=== PATIENT | male | born 1970 | race Caucasian/White ===

== ENCOUNTER 2018-09-03 15:40 | Emergency (ER) | payer MEDICAID ==
[2018-09-03 18:26] LABS: ADD MAN DIFF? NO
[2018-09-03 18:29] LABS: BASOPHILS % 0.6 % (0.0-2.0); EOSINOPHILS # 0.3 10^3/ul (0.0-0.5); EOSINOPHILS % 4.3 % (0.0-7.0); HEMATOCRIT 41.4 % (42.0-52.0); HEMOGLOBIN 14.4 g/dl (14.0-18.0); LYMPHOCYTES # 2.3 10^3/ul (0.8-2.9); LYMPHOCYTES % 35.5 % (15.0-51.0); MEAN CORPUSCULAR HEMOGLOBIN 31.2 pg (29.0-33.0); MEAN CORPUSCULAR HGB CONC 34.8 g/dl (32.0-37.0); MEAN CORPUSCULAR VOLUME 89.6 fl (82.0-101.0); MEAN PLATELET VOLUME 10.6 fl (7.4-10.4); MONOCYTE # 0.5 10^3/ul (0.3-0.9); MONOCYTES % 7.6 % (0.0-11.0); NEUTROPHIL # 3.4 10^3/ul (1.6-7.5); NEUTROPHILS % 51.7 % (39.0-77.0); PLATELET COUNT 241 10^3/UL (140-415); RED BLOOD COUNT 4.62 10^6/ul (4.70-6.10); RED CELL DISTRIBUTION WIDTH 11.9 % (11.5-14.5)
[2018-09-03 18:29] LABS: WHITE BLOOD COUNT 6.5 10^3/ul (4.8-10.8)
[2018-09-03] MEDS: ONDANSETRON 4 MG INJ IV (18:34)
[2018-09-03] MEDS: SOD CHLORIDE 0.9% 1,000 ML IV (18:34)
[2018-09-03] MEDS: morphine 4 MG/ML VIAL IV (18:34)
[2018-09-03 18:49] LABS: INR 0.93; PROTIME 12.6 Sec (11.9-14.9)
[2018-09-03 18:50] LABS: BLOOD UREA NITROGEN 61 mg/dl (7-20); CALCIUM 8.7 mg/dl (8.4-10.2); CHLORIDE 100 mmol/L (97-110); CREATININE 2.19 mg/dl (0.61-1.24); Estimated GFR 32 mL/min (>60); GLUCOSE 323 mg/dl (70-220); HDL CHOLESTEROL 25 mg/dl (28-71); PARTIAL THROMBOPLASTIN TIME 28.2 Sec (23.0-35.0); POTASSIUM 4.5 mmol/L (3.5-5.1); SODIUM 133 mmol/L (135-144); TRIGLYCERIDES 281 mg/dl (0-149)
[2018-09-03 18:51] LABS: ANION GAP 9 (5-13); CARBON DIOXIDE 24 mmol/L (21-31); CHOL/HDL RATIO 7.3 RATIO; CHOLESTEROL 183 mg/dl (100-200); LDL CHOLESTEROL,CALCULATED 102 mg/dl
[2018-09-03 19:03] LABS: TROPONIN-I < 0.012 ng/ml (0.000-0.120)
[2018-09-03 19:21] LABS: ADD UMIC NO; UR ASCORBIC ACID NEGATIVE (NEGATIVE); UR BILIRUBIN (Dip) NEGATIVE (NEGATIVE); UR BLOOD (Dip) NEGATIVE (NEGATIVE); UR CLARITY CLEAR (CLEAR); UR COLOR STRAW (YELLOW); UR GLUCOSE (Dip) 3+ mg/dL (NEGATIVE); UR KETONES (Dip) NEGATIVE (NEGATIVE); UR LEUKOCYTE ESTERASE (Dip) NEGATIVE Leu/ul (NEGATIVE); UR NITRITE (Dip) NEGATIVE (NEGATIVE); UR SPECIFIC GRAVITY (Dip) 1.011 (1.003-1.030); UR TOTAL PROTEIN (Dip) NEGATIVE (NEGATIVE); UR UROBILINOGEN (Dip) NEGATIVE (NEGATIVE)
== END 2018-09-03 21:00 | disposition home or self-care (01) ==
LOC: E/R 15:40
DX: R51 Headache (principal); E11.9 Type 2 diabetes mellitus without complications; I10 Essential (primary) hypertension; R07.9 Chest pain, unspecified; Z79.4 Long term (current) use of insulin; Z79.82 Long term (current) use of aspirin; Z86.73 Personal history of transient ischemic attack (TIA), and cerebral infarction without residual deficits; Z87.891 Personal history of nicotine dependence
CPT/HCPCS: 70450; 71045; 80048; 80061; 81003; 82962; 84484; 85025; 85610; 85730; 93005; 96374; 96375; 99285-25